=== PATIENT | female | born 1955 | race Caucasian/White ===

== ENCOUNTER 2021-01-08 20:15 | Emergency (ER) | payer MEDICARE ==
[~2021-01-08] VITALS: Ht 170.2 cm; Wt 81.8 kg
[2021-01-08 20:36] VITALS: TEMP 98.4
[2021-01-08 21:37] LABS: BASO % 0.3 % (0.0-2.0); EOS # 0.2 (0.0-0.7); EOS % 2.1 % (0-4.0); GRAN # 4.8 (1.4-6.5); GRAN % 66.6 % (42.2-75.2); HEMATOCRIT 39.7 % (37.0-47.0); HEMOGLOBIN 13.5 g/dl (12.5-16.0); LYMPH # 1.7 (1.2-3.4); LYMPH % 23.9 % (20.0-51.0); MEAN CELL VOLUME 101 fl (80.0-100.0); MEAN CORPUSCULAR HEMOGLOBIN 34 pg (27.0-31.0); MEAN CORPUSCULAR HGB CONC 34 g/dl (33.0-37.0); MEAN PLATELET VOLUME 10.8 fl (7.4-10.4); MONO # 0.5 (0.1-0.6); MONO % 6.8 % (1.7-9.3); PLATELET COUNT 197 K/mm3 (130-400); RED BLOOD COUNT 3.95 M/mm3 (4.10-5.30)
[2021-01-08 21:47] LABS: BILIRUBIN,TOTAL 0.4 mg/dL (0.0-1.0); CALCIUM 10.1 mg/dL (8.4-10.2); CREATININE, serum 0.92 (0.52-1.25); POTASSIUM 3.2 mmol/L (3.4-5.0); TOTAL PROTEIN 7.2 gm/dL (6.4-8.2)
[2021-01-08 23:20] VITALS: BP 146/91; PULSE 83
== END 2021-01-08 23:20 | disposition home or self-care (01) ==
LOC: COL.ER 20:15
PROVIDERS: Emergency Medicine
DX: S80.211A Abrasion, right knee, initial encounter (principal); M54.5 Low back pain; R22.43 Localized swelling, mass and lump, lower limb, bilateral; Z85.42 Personal history of malignant neoplasm of other parts of uterus; W19.XXXA Unspecified fall, initial encounter; Y92.512 Supermarket, store or market as the place of occurrence of the external cause
CPT/HCPCS: J1100; J1650; J1885; J2270; J3360

== ENCOUNTER 2021-01-19 17:12 | Emergency (ER) | payer MEDICARE ==
[~2021-01-19] VITALS: Ht 170.2 cm; Wt 81.8 kg
[2021-01-19 17:18] VITALS: TEMP 97
[2021-01-19 18:49] LABS: BASO % 0.4 % (0.0-2.0); EOS # 0.2 (0.0-0.7); EOS % 2.1 % (0-4.0); GRAN # 4.8 (1.4-6.5); GRAN % 68.4 % (42.2-75.2); HEMATOCRIT 41.4 % (37.0-47.0); HEMOGLOBIN 14.3 g/dl (12.5-16.0); LYMPH # 1.5 (1.2-3.4); LYMPH % 21.5 % (20.0-51.0); MEAN CELL VOLUME 98 fl (80.0-100.0); MEAN CORPUSCULAR HEMOGLOBIN 34 pg (27.0-31.0); MEAN CORPUSCULAR HGB CONC 35 g/dl (33.0-37.0); MEAN PLATELET VOLUME 11.6 fl (7.4-10.4); MONO # 0.5 (0.1-0.6); MONO % 7.2 % (1.7-9.3); PLATELET COUNT 181 K/mm3 (130-400); RED BLOOD COUNT 4.21 M/mm3 (4.10-5.30); REDCELL DISTRIBUTION WIDTH-CV 12.4 % (11.5-14.5)
[2021-01-19 19:18] LABS: ALANINE AMINOTRANSFERASE 47 U/L (4-34); ALKALINE PHOSPHATASE 94 U/L (50-136); ANION GAP 6 mmol/L (7-16); AST,SGOT 39 U/L (15-37); BILIRUBIN,TOTAL 0.4 mg/dL (0.0-1.0); BLOOD UREA NITROGEN 19 mg/dL (7-17); CALCIUM 9.4 mg/dL (8.4-10.2); CARBON DIOXIDE 31 mmol/L (22-30); CHLORIDE 103 mmol/L (98-107); CREATININE, serum 0.92 (0.52-1.25); GLUCOSE 105 mg/dL (74-106); POTASSIUM 4.6 mmol/L (3.4-5.0); SODIUM 140 mmol/L (137-145); TOTAL PROTEIN 7.1 gm/dL (6.4-8.2)
[2021-01-19 19:31] LABS: TROPONIN-I < 0.012 ng/mL (0.000-0.035)
[2021-01-19] MEDS ORDERED: LASIX 20MG TABL20 MG PO (19:43)
[2021-01-19 20:10] VITALS: BP 126/79; PULSE 87
== END 2021-01-19 20:15 | disposition home or self-care (01) ==
LOC: COL.ER 17:12
PROVIDERS: Emergency Medicine
DX: R60.0 Localized edema (principal); M54.5 Low back pain
CPT/HCPCS: J1885; J2405; J3010

== ENCOUNTER 2021-02-04 18:10 | Inpatient (IN) | payer MEDICARE, MEDICAID ==
[~2021-02-04] VITALS: Ht 170.2 cm; Wt 81.8 kg
[~2021-02-04 18:10] MED LIST: LASIX 20MG TABL20 MG PO
[2021-02-04] MEDS ORDERED: IBU800 M1 PO (18:32)
[2021-02-04 18:58] LABS: BASO % 0.4 % (0.0-2.0); EOS # 0.3 (0.0-0.7); EOS % 3.4 % (0-4.0); GRAN # 5.2 (1.4-6.5); GRAN % 65.7 % (42.2-75.2); HEMATOCRIT 39.6 % (37.0-47.0); HEMOGLOBIN 13.7 g/dl (12.5-16.0); LYMPH # 1.9 (1.2-3.4); LYMPH % 23.7 % (20.0-51.0); MEAN CELL VOLUME 98 fl (80.0-100.0); MEAN CORPUSCULAR HEMOGLOBIN 34 pg (27.0-31.0); MEAN CORPUSCULAR HGB CONC 35 g/dl (33.0-37.0); MEAN PLATELET VOLUME 11.5 fl (7.4-10.4); MONO # 0.5 (0.1-0.6); MONO % 6.4 % (1.7-9.3); PLATELET COUNT 203 K/mm3 (130-400); RED BLOOD COUNT 4.05 M/mm3 (4.10-5.30); REDCELL DISTRIBUTION WIDTH-CV 11.9 % (11.5-14.5)
[2021-02-04 19:06] LABS: ALANINE AMINOTRANSFERASE 22 U/L (4-34); ALBUMIN 3.9 gm/dL (3.5-5.0); ALKALINE PHOSPHATASE 88 U/L (50-136); ANION GAP 11 mmol/L (7-16); AST,SGOT 30 U/L (15-37); BILIRUBIN,TOTAL 0.2 mg/dL (0.0-1.0); BLOOD UREA NITROGEN 36 mg/dL (7-17); CALCIUM 11.1 mg/dL (8.4-10.2); CARBON DIOXIDE 24 mmol/L (22-30); CHLORIDE 107 mmol/L (98-107); CREATININE, serum 2.05 (0.52-1.25); GLUCOSE 89 mg/dL (74-106); POTASSIUM 3.3 mmol/L (3.4-5.0); SODIUM 142 mmol/L (137-145); TOTAL PROTEIN 7.7 gm/dL (6.4-8.2)
[2021-02-04 19:19] LABS: TROPONIN-I < 0.012 ng/mL (0.000-0.035)
[2021-02-04 20:35] LABS: MUCOUS Present /lpf; PH 5 (5-8); URINE APPEARANCE Cloudy; URINE BACTERIA Rare /hpf; URINE BILIRUBIN Negative (NEGATIVE); URINE BLOOD Negative (NEGATIVE); URINE COLOR Yellow; URINE GLUCOSE Negative (NEGATIVE); URINE KETONE Negative (NEGATIVE); URINE LEUKOCYTE ESTERASE 1+ (NEGATIVE); URINE NITRATE Negative (NEGATIVE); URINE PROTEIN(semi-quant) 2+ (NEGATIVE); URINE RBC 0-2 /hpf; URINE UROBILINOGEN Negative (NEGATIVE)
[2021-02-04 21:50] VITALS: BP 134/77; PULSE 93
[2021-02-04 23:28] VITALS: BP 136/66; PULSE 99; TEMP 97.8
--- NOTE | 2021-02-04 23:56 | NUR ---
PATIENT TO FLOOR AT 2130, PATIENT HAVING MUCH PAIN RATING IT AT 9/10, OBJECTIVE SIGNS INCLUDE FACIAL GRIMACING; RESTLESSNESS; ORAL MOANING WITH MOVEMENT. PATIENT TITOEN DILAUDID WITH SOME RELEIF NOTED. PATIENT STATES SHE HAS HAD INCREASED DIFFICULTY WITH AMBULATION D/T INCREASING EDEMA IN BLE NOW EXTENDING TO MID THIGH. SHE ALSO STATES SHE HAS SOME NUMBNESS AND TINGELING IN HER FEET THAT RADIATES UP LEGS WITH WALKING OR MOVEMENT. PATIENT STATES SHE HAS HAD 9 FALLS THIS MONTH. SHE IS PLESANT AND COOPERATIVE AND AWARE OF POSSIBLE MASS ON SPINE. SHE HAS NO CONCERNS OR WANTS AT THIS TIME.
[2021-02-05] VITALS (8 sets, daily range): BP systolic 92–136; BP diastolic 50–77; PULSE 78–109; TEMP 97.8–98.4
[2021-02-05 02:13] LABS: COLLECTION METHOD CLEAN CATCH
[2021-02-05 02:23] LABS: PH 5 (5-8); SQUAMOUS EPITHELIAL 0-2 /hpf; URINE APPEARANCE Hazy; URINE BACTERIA None Seen /hpf; URINE BILIRUBIN Negative (NEGATIVE); URINE BLOOD Negative (NEGATIVE); URINE COLOR Yellow; URINE GLUCOSE Negative (NEGATIVE); URINE KETONE Trace (NEGATIVE); URINE LEUKOCYTE ESTERASE Negative (NEGATIVE); URINE NITRATE Negative (NEGATIVE); URINE PROTEIN(semi-quant) 1+ (NEGATIVE); URINE RBC 0-2 /hpf; URINE UROBILINOGEN Negative (NEGATIVE)
[2021-02-05 02:37] LABS: BASO % 0.2 % (0.0-2.0); EOS # 0.2 (0.0-0.7); EOS % 2.5 % (0-4.0); GRAN # 5.5 (1.4-6.5); GRAN % 69.1 % (42.2-75.2); HEMOGLOBIN 12.1 g/dl (12.5-16.0); LYMPH # 1.8 (1.2-3.4); LYMPH % 21.9 % (20.0-51.0); MEAN CELL VOLUME 95 fl (80.0-100.0); MEAN CORPUSCULAR HEMOGLOBIN 34 pg (27.0-31.0); MEAN CORPUSCULAR HGB CONC 36 g/dl (33.0-37.0); MEAN PLATELET VOLUME 11.2 fl (7.4-10.4); MONO # 0.5 (0.1-0.6); MONO % 6.1 % (1.7-9.3); PLATELET COUNT 186 K/mm3 (130-400); RED BLOOD COUNT 3.58 M/mm3 (4.10-5.30); REDCELL DISTRIBUTION WIDTH-CV 11.8 % (11.5-14.5)
[2021-02-05 02:40] LABS: HEMATOCRIT 34.1 % (37.0-47.0)
[2021-02-05 02:44] LABS: CALCIUM 9.6 mg/dL (8.4-10.2); CREATININE, serum 1.36 (0.52-1.25); POTASSIUM 3.3 mmol/L (3.4-5.0)
--- NOTE | 2021-02-05 05:55 | NUR ---
Patient had difficulty resting last night d/t pain with movement. Patient can stand and pivot to C. Patient is increased fall risk d/t numbness of BLE poor physical response with movement independant of touch. States she cannot tell if she is urinating unless she "hears" it. Pain currently controlled with oral [place] and IV dilaudid.
--- NOTE | 2021-02-05 07:57 | NUR ---
Shift assessment completed. INT to R hand intact. Dressing to R knee CDI. CMS to LE within normal limits. Generalized weakness to LE. BP 104/50, nurse notified. Pt complains of pain at the small of back w/ movement. States pain is 8/10 and sharp, nurse notified. Pt in bed drowsy but oriented.
--- NOTE | 2021-02-05 08:33 | NUR ---
Assessment completed, alert/oriented, vital signs stable, continues to report severe pain in mid-lower back, PRN dilaudid given and will alteranated with PO [place] as well, patient reports numbness/tingling to BLE from about the knees down, she can feel pressure but cannont distinguish dull/ sharp , she was unable to move toes on either side when instructed to do so, she is scheduled for an MRI of L-spine today to better assess T12-L1 lesion that was visualized on previous MRI, heart RRR/ distal pulses are palpable, she has 2-3+ edema to BLE, ECHO was done this morning, no resp.difficulty and Lungs CTA, BS active and patient taking PO without issues, I have ordered her breakfast, I helped her get repositioned at this time, patient denies other needs
--- NOTE | 2021-02-05 09:10 | NUR ---
Patient has weakness and edema on both lower extremities. Pt describes minimal sensation when palpated, says she feels "pins and needles."
--- NOTE | 2021-02-05 09:19 | NUR ---
VS rechecked. BP 92/54, pulse 109, pain 10/10 in mid lower back, sharp "shock wave" and constant. Nurse notified.
--- NOTE | 2021-02-05 10:15 | NUR ---
Initial visit; Patient in a great deal of pain. Seasonal Driver attempted to help with a cold wash cloth on forehead and offering prayer. Lena had maximized her pain medication and was doing her best to wait it out. Seasonal Driver spoke with Nurse who was helpful and empathetic.
[2021-02-05 11:25] LABS: COLLECTION METHOD CLEAN CATCH
--- NOTE | 2021-02-05 14:43 | NUR ---
Forming Mill Operator met with patient to discuss discharge planning. Patient lives alone in [place] and sees Dr. Shaw for primary care. Patient obtains medications from [facility] on [address] with no difficulties. Patient uses a four wheeled walker and no other DME. Patient reports she is normally independent with ADLS but that sometimes getting dressed takes her some time. Patient does not have Advance Directives but wanted to complete DPOA-HC. Patient chose to designate her son, Tony (ph#[phone]) and no alternate. Patient verbalized understanding of DPOA-HC and signed the form. DIANA and GREG Mckinnon provided witness signature. DIANA provided original and copies to patient then placed copy on patient's chart. DIANA discussed home health services with patient who is interested in services. SW provided Medicare.gov list of agencies. Patient chose [facility]. DIANA contacted Denise at [facility] and faxed referral. DIANA then contacted patient's son, Tony to review discharge plan. Tony states he will be calling patient to check in with her this afternoon. Discharge plan: Home with Home Health.
--- NOTE | 2021-02-05 22:39 | NUR ---
PATIENT IN BED, PLEASANT. R FOREARM IV SITE INFILTRATED AND DC'D. 22G PLACED L FOREARM, 1 ATTEMPT. NO CONCERNS VOICED AT THIS TIME
[2021-02-06 04:37] VITALS: BP 104/56; PULSE 72; TEMP 98.1
--- NOTE | 2021-02-06 06:21 | NUR ---
PATIENT HAD RESTFUL NIGHT, HOWEVER WHEN SHE WOULD WAKE, HER PAIN WOULD BE NOTED AT 10/10. TREATED TO LEVEL OF 5/10 WITH DILAUDID AND [place]. PATIENT IS ANXIOUS FOR RESULTS FROM MRI, STATES SHE FEELS THERE IS "SOMETHING GROWING" ON HER SPINE. PATIENT IS UPBEAT AND OPTIMISTIC ABOUT HER FUTURE HEALTH.
[2021-02-06 06:42] LABS: BASO % 0.1 % (0.0-2.0); EOS # 0.1 (0.0-0.7); EOS % 0.8 % (0-4.0); GRAN # 5.2 (1.4-6.5); GRAN % 68.2 % (42.2-75.2); HEMATOCRIT 33.1 % (37.0-47.0); HEMOGLOBIN 11.2 g/dl (12.5-16.0); LYMPH % 26.3 % (20.0-51.0); MEAN CORPUSCULAR HEMOGLOBIN 34 pg (27.0-31.0); MEAN CORPUSCULAR HGB CONC 34 g/dl (33.0-37.0); MEAN PLATELET VOLUME 11.2 fl (7.4-10.4); MONO # 0.3 (0.1-0.6); MONO % 4.3 % (1.7-9.3); PLATELET COUNT 181 K/mm3 (130-400); RED BLOOD COUNT 3.31 M/mm3 (4.10-5.30); REDCELL DISTRIBUTION WIDTH-CV 11.8 % (11.5-14.5)
[2021-02-06 06:43] LABS: MEAN CELL VOLUME 100 fl (80.0-100.0)
[2021-02-06 06:54] LABS: ALBUMIN 3.3 gm/dL (3.5-5.0); BILIRUBIN,TOTAL 0.2 mg/dL (0.0-1.0); CREATININE, serum 1.03 (0.52-1.25); POTASSIUM 3.6 mmol/L (3.4-5.0); TOTAL PROTEIN 6.3 gm/dL (6.4-8.2)
[2021-02-06 07:43] VITALS: BP 110/70; PULSE 77; TEMP 98.3
[2021-02-06 11:32] VITALS: BP 110/61; PULSE 82; TEMP 97.9
--- NOTE | 2021-02-06 12:01 | NUR ---
Patient is going down to CT a tthis time
--- NOTE | 2021-02-06 14:40 | NUR ---
Primary nurse was assisted with [phone] patient care by [employer] student Betty Osman and [employer] instructor Margie Scott MSN, RN.
[2021-02-06 15:57] VITALS: BP 118/58; PULSE 87; TEMP 98.4
--- NOTE | 2021-02-06 19:30 | NUR ---
Initial assessment done- states pain to lower back 06/17,, Dilaudid given as ordered at this time- also one time does of Decadron 10 MG IV also given now- pt states unable to wiggle toes, feel like pins and needeles, overall numb from mid thigh down- was able to get up to BSC with 2 assist- very unsteady,, IV fluids of NS at 100cc/hr, son at [facility]- Shonda GARZA informed then that she is being transferred to [facility] when bed avaiable. Pt agrees.
[2021-02-06] MEDS ORDERED: BLUE-EMU LIDOC1 EACH TP (20:24)
[2021-02-06] MEDS ORDERED: Dilaudid Inj IV (20:24)
[2021-02-06] MEDS ORDERED: TYLENOL 325MG325 MG PO (20:24)
[2021-02-06] MEDS ORDERED: NORCO 325 MG-51 TAB PO (20:24)
[2021-02-06] MEDS ORDERED: NEURONTIN100 MG/CAP PO (20:24)
[2021-02-06 21:13] VITALS: BP 120/68; PULSE 86; TEMP 97.8
--- NOTE | 2021-02-06 21:15 | NUR ---
EMS here to take to [facility]_ paperwork completed- discharge summary printed and put with the discarge packet-- VSS. Report called to [facility] -
== END 2021-02-06 21:20 | disposition short-term general hospital (02) | DRG 315 ==
LOC: COL.ER 18:10 → MEDICAL 20:44
PROVIDERS: Hospitalist; Nurse Practitioner; Student in an Organized Health Care Education/Training Program; ADMIT Internal Medicine
DX: D18.09 Hemangioma of other sites (principal); N17.9 Acute kidney failure, unspecified; E86.0 Dehydration; E83.52 Hypercalcemia; R53.81 Other malaise; R29.6 Repeated falls; R60.0 Localized edema; E02 Subclinical iodine-deficiency hypothyroidism; E87.6 Hypokalemia; M19.90 Unspecified osteoarthritis, unspecified site; Z85.42 Personal history of malignant neoplasm of other parts of uterus; G89.29 Other chronic pain; T39.395A Adverse effect of other nonsteroidal anti-inflammatory drugs [NSAID], initial encounter; M48.05 Spinal stenosis, thoracolumbar region; M48.061 Spinal stenosis, lumbar region without neurogenic claudication; I08.1 Rheumatic disorders of both mitral and tricuspid valves; I45.10 Unspecified right bundle-branch block; S60.222A Contusion of left hand, initial encounter; S80.01XA Contusion of right knee, initial encounter; Z60.2 Problems related to living alone; Z80.9 Family history of malignant neoplasm, unspecified; W22.8XXA Striking against or struck by other objects, initial encounter; Y93.89 Activity, other specified; Y92.481 Parking lot as the place of occurrence of the external cause; Z87.891 Personal history of nicotine dependence
CPT/HCPCS: 99223-AI; 99233-AI; 99239; A9585; G0378; J1100; J1170; J1644; J3010; J7030; J7509; Q9967

== ENCOUNTER 2021-02-22 06:42 | Inpatient (IN) | payer MEDICARE, MEDICAID ==
[~2021-02-22] VITALS: Ht 170.2 cm; Wt 81.8 kg
[~2021-02-22 06:42] MED LIST changes: +BLUE-EMU LIDOC1 EACH TP; +Dilaudid Inj IV; +IBU800 M1 PO; +NEURONTIN100 MG/CAP PO; +NORCO 325 MG-51 TAB PO; +TYLENOL 325MG325 MG PO
[2021-02-22 07:30] LABS: BASO % 0.3 % (0.0-2.0); EOS % 0.1 % (0-4.0); GRAN # 8.3 (1.4-6.5); GRAN % 84.4 % (42.2-75.2); HEMOGLOBIN 10.9 g/dl (12.5-16.0); LYMPH # 0.9 (1.2-3.4); LYMPH % 8.9 % (20.0-51.0); MEAN CELL VOLUME 99 fl (80.0-100.0); MEAN CORPUSCULAR HEMOGLOBIN 33 pg (27.0-31.0); MEAN CORPUSCULAR HGB CONC 34 g/dl (33.0-37.0); MEAN PLATELET VOLUME 10.2 fl (7.4-10.4); MONO # 0.6 (0.1-0.6); MONO % 5.9 % (1.7-9.3); PLATELET COUNT 271 K/mm3 (130-400); RED BLOOD COUNT 3.28 M/mm3 (4.10-5.30)
[2021-02-22 07:47] LABS: BILIRUBIN,TOTAL 0.5 mg/dL (0.0-1.0); CALCIUM 8.2 mg/dL (8.4-10.2); CREATININE, serum 0.7 (0.52-1.25); POTASSIUM 3.2 mmol/L (3.4-5.0); TOTAL PROTEIN 6.2 gm/dL (6.4-8.2)
[2021-02-22 07:53] LABS: HEMATOCRIT 32.4 % (37.0-47.0)
[2021-02-22 08:03] LABS: C-REACTIVE PROTEIN 19.8 mg/dL (0.0-0.9)
[2021-02-22 08:47] LABS: ERYTHROCYTE SEDIMENTATION RATE 43 mm/hr (0-30)
--- NOTE | 2021-02-22 12:47 | NUR ---
SW working on placemen to [facility] [place] or [facility]. SW made aware of client transfer to ED from home. SW called [facility] to discuss options for patient to return to skilled placement. CLient has [employer] and is required to have a prior Authorization. SW Called [facility] to start PA. [facility] Auth number [id number] Basketball Referee reports that a new clinical assessment is needed. They need new PT orders and evaluation to admit client. If this can be done from the ED and faxed, they may consider client to transfer from ED to [facility]. However if this assessment can not be completed then the client will need to be admitted and have a new full clinical evaluation. THis is due to the discharge from [facility] on . SW will update if an order for PT can be processed and obtained.
[2021-02-22 16:11] VITALS: BP 138/70; PULSE 84; TEMP 99.4
[2021-02-22] MEDS ORDERED: SENOKOT S 50 MG1 TAB PO (16:14)
[2021-02-22] MEDS ORDERED: OXY IR5 MG PO (16:14)
[2021-02-22] MEDS ORDERED: NEURONTIN300 MG/CAP PO (16:14)
--- NOTE | 2021-02-22 16:14 | NUR ---
DIANA update. DIANA met with patient and with permission Dtr Torie HENRIQUEZ and son in the room. DIANA reviewed with the client and family about care and set expectations. DIANA talked with Sahara at [facility] about the patient's DC. Sahara (DIANA) reports that the patient has 3 options to come back. 1. On Skilled orders, not fighting cancer. 2. LTC fight cancer, but LTC. 3. Hospice. Educated family of these options and why insurance is pending clinical review for care. DIANA faxed all documentation for the temporary review. Will need to provide remainder of PPW once it is reviewed. Educated nursing staff on patient's stay. Needs PT/OT eval. Patient reports that her PCP is Dr. Kathleen Kahn, uses [facility] for medications, Walker for mobility but is having hard time walking. No other DME supports. WF.
[2021-02-22] MEDS ORDERED: ZANAFLEX 4MG TAB4 MG PO (16:15)
--- NOTE | 2021-02-22 16:46 | NUR ---
Patient alert and oriented, answers questions appropriately. See assessment. Lumbar spine with surgical incision, edges well approximated, no redness. Dressing with scant amount of drainage noted. C/o numbness to BLE, pulses palpable. States unable to bear weight or walk. States discharged from AL at [facility] yesterday and slept on the floor at her apartment last night, and upon waking was unable to get off floor. Also states she left [facility] with no medications so has not taken any of her prescription pain medications, which allows her to ambulate. No other c/o at this time.
[2021-02-22 19:59] VITALS: BP 123/91; PULSE 87; TEMP 100.1
--- NOTE | 2021-02-22 22:00 | NUR ---
PT IN BED, AWAKENS TO NAME. IS ALERT AND ORIENTED X4. HAS IVF TO RT HAND INFUSING WITHOUT PROBLEM. HAS TEMP 100.1, GIVEN ES TYLENOL 2 TABS AT THIS TIME WELL HS MEDS. HAS NOT BEEN OUT OF BED SINCE ARRIVING TO ROOM. ATE 75% OF DINNER.
[2021-02-22 23:51] VITALS: BP 95/47; PULSE 78; TEMP 99.9
--- NOTE | 2021-02-23 03:14 | NUR ---
PT SLEEPING. IVF CONTINUE WITHOUT PROBLEM.
[2021-02-23 04:18] VITALS: BP 105/50; PULSE 64; TEMP 98
[2021-02-23 07:40] LABS: BASO % 0.4 % (0.0-2.0); EOS # 0.1 (0.0-0.7); GRAN # 6.2 (1.4-6.5); GRAN % 77.4 % (42.2-75.2); HEMOGLOBIN 10.6 g/dl (12.5-16.0); LYMPH % 12.6 % (20.0-51.0); MEAN CELL VOLUME 102 fl (80.0-100.0); MEAN CORPUSCULAR HEMOGLOBIN 33 pg (27.0-31.0); MEAN CORPUSCULAR HGB CONC 33 g/dl (33.0-37.0); MEAN PLATELET VOLUME 10.2 fl (7.4-10.4); MONO # 0.7 (0.1-0.6); MONO % 8.2 % (1.7-9.3); PLATELET COUNT 252 K/mm3 (130-400); RED BLOOD COUNT 3.19 M/mm3 (4.10-5.30); REDCELL DISTRIBUTION WIDTH-CV 13.3 % (11.5-14.5)
[2021-02-23 07:45] LABS: HEMATOCRIT 32.6 % (37.0-47.0)
[2021-02-23 07:46] VITALS: BP 113/58; PULSE 79; TEMP 98.7
[2021-02-23 07:58] LABS: ALBUMIN 2.8 gm/dL (3.5-5.0); BILIRUBIN,TOTAL 0.7 mg/dL (0.0-1.0); CALCIUM 8.3 mg/dL (8.4-10.2); CREATININE, serum 0.74 (0.52-1.25); POTASSIUM 3.1 mmol/L (3.4-5.0); TOTAL PROTEIN 5.9 gm/dL (6.4-8.2)
--- NOTE | 2021-02-23 09:00 | NUR ---
Pt resting in bed having pain complaints in her legs and lower back. Pain medication given as well as scheduled morning medications. She is alert and oriented although expectations are not a reality. She is upset that [facility] had not been treating her cancer. She stated that she wanted to be somewhere that treats the cancer. Informed her that at this point she is not getting any treatment that requires her to be in a facility like that. I informed her that her oncologist would be the one to help her make that decision. She stated that she has that appointment the beginning of March. I stated that they would help her decide the next plan for her. As of right now [facility] is there to help her stay strong and for her to have therapy work with her. Pt daughter arrived about this time and stated that she agreed. And that right now her mom does not have anyone to help her as much as what she needs.
[2021-02-23 12:50] VITALS: BP 103/63; PULSE 75; TEMP 99.3
--- NOTE | 2021-02-23 13:42 | NUR ---
Pt has been up to the restroom. She continues to rate pain 8/10 in her lower back and legs. Does not appear to be in severe pain, pain medication given. No other needs, will continue to monitor
[2021-02-23 17:11] VITALS: BP 115/61; PULSE 80; TEMP 97.5
--- NOTE | 2021-02-23 18:23 | NUR ---
IV in right hand infiltrated. IV removed. Called Betty VALLADARES and order to leave out. Pt reports feeling better and states that she now knows why she feels "sore". Stated that her son did a lot with her during activity. Pt denies any needs
[2021-02-23 20:18] VITALS: BP 110/55; PULSE 87; TEMP 100.7
--- NOTE | 2021-02-23 20:52 | NUR ---
PT IN BED. HAS FEVER 100.7. MEDICATED WITH HS MEDS INCLUDING OXYCODONE 5MG PO AND ES TYLENOL 1000MG PO NOW WELL HS MEDS. ASSISTED TO BATHROOM, VOIDS DARK YELLOW URINE AND BACK TO BED. PT WALKS WITH WALKER, SLOW STEADY GAIT. HAS DRSG TO BACK, D/I. REDNESS AT MID BACK NOTED. HAS NO IV SITE.
[2021-02-23 23:58] VITALS: BP 92/51; PULSE 58; TEMP 98.3
[2021-02-24] VITALS (13 sets, daily range): BP systolic 73–132; BP diastolic 43–74; PULSE 64–92; TEMP 97.9–99.1
--- NOTE | 2021-02-24 | NUR ---
AFEBRILE. OFFERS NO COMPLAINTS AT THIS TIME.
[2021-02-24 07:41] LABS: HEMATOCRIT 33.2 % (37.0-47.0); HEMOGLOBIN 10.6 g/dl (12.5-16.0); MEAN CELL VOLUME 103 fl (80.0-100.0); MEAN CORPUSCULAR HEMOGLOBIN 33 pg (27.0-31.0); MEAN CORPUSCULAR HGB CONC 32 g/dl (33.0-37.0); MEAN PLATELET VOLUME 10.8 fl (7.4-10.4); PLATELET COUNT 243 K/mm3 (130-400); RED BLOOD COUNT 3.24 M/mm3 (4.10-5.30); REDCELL DISTRIBUTION WIDTH-CV 13.1 % (11.5-14.5)
[2021-02-24 08:02] LABS: ALBUMIN 2.9 gm/dL (3.5-5.0); BILIRUBIN,TOTAL 0.5 mg/dL (0.0-1.0); CALCIUM 8.2 mg/dL (8.4-10.2); CREATININE, serum 0.72 (0.52-1.25); POTASSIUM 3.6 mmol/L (3.4-5.0); TOTAL PROTEIN 6.1 gm/dL (6.4-8.2)
--- NOTE | 2021-02-24 08:50 | NUR ---
Patient resting in bed. Dopplar completed, by Janeth in Vascular. I notifed results to Nadia VALLADARES. Patient lying in bed, tearful. Reports feeling overwhelmed. Pain rating 8/10. Prn Oxicodone per request. She tolerated breakfast. Denies nausea. I instructed her on UA collection. Will monitor.
--- NOTE | 2021-02-24 11:00 | NUR ---
Patient showered. KAY Sullivan assisted. She gave fresh linens. Prior to shower, Air strip to spine removed. Purulent drainage noted. Irina Thomas made aware, she will speak to .
[2021-02-24 11:36] LABS: COLLECTION METHOD CLEAN CATCH
[2021-02-24 11:46] LABS: MUCOUS Present /lpf; PH 7 (5-8); SQUAMOUS EPITHELIAL 0-2 /hpf; URINE APPEARANCE Clear; URINE BACTERIA None Seen /hpf; URINE BILIRUBIN Negative (NEGATIVE); URINE BLOOD Negative (NEGATIVE); URINE COLOR Yellow; URINE GLUCOSE Negative (NEGATIVE); URINE KETONE Negative (NEGATIVE); URINE LEUKOCYTE ESTERASE Negative (NEGATIVE); URINE NITRATE Negative (NEGATIVE); URINE PROTEIN(semi-quant) Negative (NEGATIVE); URINE RBC 0-2 /hpf
--- NOTE | 2021-02-24 11:50 | NUR ---
Patient hypotensive, Irina Sutton made aware.
--- NOTE | 2021-02-24 12:30 | NUR ---
Fluid bolus ordered & started. Patient a hard IV stick,4 different nurses attempted, with 2 attempts each. Beulah to start picc line. Hospitalsit team rounding.
--- NOTE | 2021-02-24 12:46 | NUR ---
Vancomycin Initial Dosing Pharmacy Note Ordering provider: MD ЕЛЕНА Indication/duration: EMPIRIC Relevant comorbidities: SPINAL CORD MALIGNANCY LABS: SCR 0.72, CRCL ~75, WBC 4.7 Recommendation: VANCOMYCIN 15 MG/KG Loading dose: 1.5 grams Maintenance dose: 1.25 grams every 12 hours Trough goal: 15-20 ug/mL
--- NOTE | 2021-02-24 13:03 | NUR ---
First visit from the visual manager. No needs right now.
--- NOTE | 2021-02-24 14:15 | NUR ---
Blood pressure improved, did give scheduled muscle relaxant. Patient to CT scan.
--- NOTE | 2021-02-24 14:58 | NUR ---
Director Of Recruitment And Admissions faxed clinical information and authorization request to [facility] for review. DIANA received a message from Shyanne at [facility] who advised authorization has been approved starting today, 02/24/21 for three days (auth #[id number]). Patient will need to be re-reviewed on 02/26/21. DIANA spoke with BLAINE Arevalo who advised patient is not ready for discharge today. DIANA contacted Rober at [facility] and faxed updates. Rober advised they can accept once patient is medically cleared for discharge. Discharge Plan: [facility]
--- NOTE | 2021-02-24 15:25 | NUR ---
Spoke to Irina Sutton. Patient blood pressure decreased after muscles relaxant, now no longer scheduled due to blood pressue. Ivf & antibioitcs continue.
--- NOTE | 2021-02-24 17:27 | NUR ---
Patient trying to rest. She is feeling worn out.
--- NOTE | 2021-02-24 17:46 | NUR ---
Betty Thomas made aware of CT scan results. No new orders at this time
--- NOTE | 2021-02-24 18:47 | NUR ---
Patient one assist to the bathroom with walker. Voided. Dinner ordered. Ivf per orders & IV antibioitcs. Blood pressue remains stable. Bedside report to Irina GARZA.
--- NOTE | 2021-02-24 20:02 | NUR ---
Pt having a lot of complaints of pain in her lower back and then groin, pain medication given . Drsg to her back was changed a shift change, it is currently CDI.
[2021-02-25] VITALS (9 sets, daily range): BP systolic 97–128; BP diastolic 50–68; PULSE 68–80; TEMP 98–98.7
[2021-02-25 07:26] LABS: BASO % 0.6 % (0.0-2.0); EOS # 0.3 (0.0-0.7); EOS % 7.8 % (0-4.0); GRAN # 1.8 (1.4-6.5); GRAN % 51.4 % (42.2-75.2); LYMPH % 29.5 % (20.0-51.0); MEAN CELL VOLUME 103 fl (80.0-100.0); MEAN CORPUSCULAR HGB CONC 32 g/dl (33.0-37.0); MEAN PLATELET VOLUME 10.9 fl (7.4-10.4); MONO # 0.4 (0.1-0.6); MONO % 10.4 % (1.7-9.3); PLATELET COUNT 219 K/mm3 (130-400); RED BLOOD COUNT 2.69 M/mm3 (4.10-5.30); REDCELL DISTRIBUTION WIDTH-CV 13.2 % (11.5-14.5)
[2021-02-25 07:27] LABS: CALCIUM 7.7 mg/dL (8.4-10.2); CREATININE, serum 0.76 (0.52-1.25); POTASSIUM 3.2 mmol/L (3.4-5.0)
[2021-02-25 07:35] LABS: HEMATOCRIT 27.7 % (37.0-47.0); HEMOGLOBIN 8.9 g/dl (12.5-16.0); MEAN CORPUSCULAR HEMOGLOBIN 33 pg (27.0-31.0)
--- NOTE | 2021-02-25 09:22 | NUR ---
MORNING SHIFT ASSESSMENT COMPLETED AT THIS TIME. AM MEDICATIONS ADMINISTERED. PATIENT GIVEN PRN PO PAIN PILL FOR PAIN IN HER BACK THAT RADIATES DOWN TO THE GROIN AND LEGS. VSS. TELE IN PLACE. MODERATE DRAINAGE PRESENT ON MIDLINE BACK AIRSTRIP. DRESSING REMOVED. EDGES WELL APPROXIMATED, ERYTHEMA AROUND INCISION SITE NOTED. NEW AIRSTRIP DRESSING PLACED OVER BACK INCISION SITE. PICC LINE TO [facility]. CALL LIGHT WITHIN REACH.
--- NOTE | 2021-02-25 09:32 | NUR ---
THIS NURSE PRESENT IN ROOM, PATIENT REPORTS THAT SHE FEELS NAUSEATED. PATIENT DRY HEAVING. PATIENT GIVEN EMESIS BASIN AND DOSE OF IV ZOFRAN. NO EPISODE OF EMESIS. WILL CONTINUE TO MONITOR.
--- NOTE | 2021-02-25 10:55 | NUR ---
IV FLUID RATE DECREASED FROM 150ML/HR TO 75ML/HR PER ORDERS.
--- NOTE | 2021-02-25 12:50 | NUR ---
Broth Mixer attended clinical rounds with the team. Patient will be ready for discharge to [facility] in the next 24-48 hours.
--- NOTE | 2021-02-25 13:33 | NUR ---
PATIENT CONSENT FORM SIGNED AND PLACED ON CHART FOR ABSCESS DRAINAGE. PATIENT DISCONNECTED FROM IV PUMP. PATIENT TAKEN TO CT VIA WHEELCHAIR. WILL WAIT FOR PATIENT ARRIVAL BACK TO ROOM 347.
--- NOTE | 2021-02-25 14:05 | NUR ---
1330 - Patient to CT via W/C for abscess drain to back. 1340 - Patient in prone position. Airstrip dressing removed from back. Skin tears noted bilaterally. 1350 - Time out performed. 1405 - Procedure completed. Specimen to lab. 1415 - Patient returned to room via W/C. Report to GREG Palacios.
--- NOTE | 2021-02-25 14:22 | NUR ---
PATIENT ARRIVED TO ROOM [address] BLAINE JOHNSON CALLED AND NOTIFIED THAT THERE ARE NO LAB ORDERS FOR THE ASPIRATED FLUID. HOSPITALIST TO REVIEW AND PLACE ORDERS.
--- NOTE | 2021-02-25 20:52 | NUR ---
PATIENT IS CALM IN BED.DUE MEDS GIVEN,ASSESSMENT DONE.RATES PAIN AT 5.DECLINES PAIN MEDICATION.NO OTHER NEEDS AT THIS TIME.
[2021-02-26 00:19] VITALS: BP 116/68; PULSE 78; TEMP 98.5
[2021-02-26 04:45] VITALS: BP 141/69; PULSE 63; TEMP 98.1
--- NOTE | 2021-02-26 05:25 | NUR ---
PATIENT HAD A RESTFUL NIGHT,HAS MINIMAL DRAINAGE ON THE DRESSING.NO OTHER NEEDS AT THIS TIME.
[2021-02-26 07:30] VITALS: BP 121/61; PULSE 67; TEMP 98.5
[2021-02-26 07:40] LABS: BASO % 0.9 % (0.0-2.0); EOS # 0.4 (0.0-0.7); GRAN # 1.4 (1.4-6.5); GRAN % 43.7 % (42.2-75.2); LYMPH # 1.1 (1.2-3.4); MEAN CELL VOLUME 104 fl (80.0-100.0); MEAN CORPUSCULAR HGB CONC 32 g/dl (33.0-37.0); MEAN PLATELET VOLUME 10.9 fl (7.4-10.4); MONO # 0.3 (0.1-0.6); MONO % 9.1 % (1.7-9.3); PLATELET COUNT 213 K/mm3 (130-400); RED BLOOD COUNT 2.69 M/mm3 (4.10-5.30); REDCELL DISTRIBUTION WIDTH-CV 13.2 % (11.5-14.5)
[2021-02-26 07:41] LABS: HEMATOCRIT 27.9 % (37.0-47.0); HEMOGLOBIN 8.8 g/dl (12.5-16.0); MEAN CORPUSCULAR HEMOGLOBIN 33 pg (27.0-31.0)
[2021-02-26 07:54] LABS: CALCIUM 8.1 mg/dL (8.4-10.2); CREATININE, serum 0.69 (0.52-1.25); POTASSIUM 3.6 mmol/L (3.4-5.0)
--- NOTE | 2021-02-26 11:30 | NUR ---
Changed patients dressing to her back. She has the one incision closed with sutures. The area surrounding the incision is red, warm to the touch and excoriated. The skin to her lower back is tight and shiny. There is clear red drainage coming from the incision. Placed two aquacel foam dressings to the incision to help catch the drainage and keep the incision dry. Patient stated she did not know she sutures in her incision. She has a few blisters alos surrounding the incision from what appears to open and drained blisters. No other changes at this time. Call light within reach.
[2021-02-26 11:57] VITALS: BP 114/66; PULSE 73; TEMP 98.7
[2021-02-26 15:44] VITALS: BP 135/69; PULSE 73; TEMP 98.7
--- NOTE | 2021-02-26 16:21 | NUR ---
Dry Cleaning Attendant attended clinical rounds with the team and patient will likely discharge tomorrow. SW faxed clinical updates to [facility]. SW also faxed clinical information to [facility] for review to obtain new authorization for SNF.
--- NOTE | 2021-02-26 18:30 | NUR ---
Patients dressing has remained clean and dry to her back. Her pain has been constant, pain medication helps a little. She denies nausea. She stated her pain is worse when she tries to lay down or walk too far. No otther changes at this time. Call light within reach.
--- NOTE | 2021-02-26 19:30 | NUR ---
Pt. sitting up in bed. Pt. is A&OX3, assessment complete. PICC to rt. upper arm patent. Dressing to mid back incision CDI at this time. Pt. reports pain to back at a 7 on pain scale, gave pain meds per orders. Pt. denies further needs, call light within reach.
[2021-02-26 20:15] VITALS: BP 132/72; PULSE 81; TEMP 98.5
[2021-02-27] VITALS: BP 108/58; PULSE 62; TEMP 98.6
[2021-02-27 03:38] VITALS: BP 125/62; PULSE 62; TEMP 97.3
--- NOTE | 2021-02-27 06:53 | NUR ---
Pt just getting back to bed from using the restroom. Having complaints that her back feels like it is burning. Red from tape from dressings to incision. Recently had PRN pain medication given, call light within reach.
[2021-02-27 07:29] LABS: BASO % 0.5 % (0.0-2.0); EOS # 0.4 (0.0-0.7); EOS % 9.6 % (0-4.0); GRAN # 1.9 (1.4-6.5); GRAN % 48.5 % (42.2-75.2); LYMPH # 1.3 (1.2-3.4); LYMPH % 33.4 % (20.0-51.0); MEAN CELL VOLUME 102 fl (80.0-100.0); MEAN CORPUSCULAR HGB CONC 31 g/dl (33.0-37.0); MEAN PLATELET VOLUME 10.7 fl (7.4-10.4); MONO # 0.3 (0.1-0.6); MONO % 7.5 % (1.7-9.3); PLATELET COUNT 199 K/mm3 (130-400); REDCELL DISTRIBUTION WIDTH-CV 12.9 % (11.5-14.5)
[2021-02-27 07:41] LABS: HEMATOCRIT 29.6 % (37.0-47.0); HEMOGLOBIN 9.3 g/dl (12.5-16.0); MEAN CORPUSCULAR HEMOGLOBIN 32 pg (27.0-31.0)
[2021-02-27 07:43] LABS: CALCIUM 8.4 mg/dL (8.4-10.2); CREATININE, serum 0.72 (0.52-1.25); POTASSIUM 3.6 mmol/L (3.4-5.0)
[2021-02-27 08:15] VITALS: BP 127/64; PULSE 71; TEMP 98.5
--- NOTE | 2021-02-27 09:00 | NUR ---
Assessment completed. Heart sounds regular, lungs clear, bowel sounds present. Pt does have bilateral lower extremity edema, uses walker to the restroom and is a standby assist. She reports overall feeling well. She is finishing breakfast, will continue to monitor. Rounding completed, new orders entered. Dr Bear called and notified of consult
[2021-02-27 12:37] VITALS: BP 109/53; PULSE 68; TEMP 98.3
--- NOTE | 2021-02-27 13:00 | NUR ---
Pt has been resting throughout the day. She is stand by assist to the restroom. Denies needs, call light within reach
--- NOTE | 2021-02-27 15:21 | NUR ---
[employer] Community Service Officer faxed clinical updates to Rober at [facility]. Patient's insurance authorization is still pending. Discharge Plan: [facility] once insurance authorization is approved.
[2021-02-27 15:51] VITALS: BP 114/54; PULSE 71; TEMP 98
--- NOTE | 2021-02-27 16:30 | NUR ---
Dressing to patient's back changed at this time. Bottom part of the incision does have active drainage. New dressing applied. Pain medication given. Pt reports that her back itches. Encouraged her to not itch it to cause damage to the incision. Pt denies other needs, she does have a visitor in the room at this time
--- NOTE | 2021-02-27 18:51 | NUR ---
BLAINE Samson has been in to see patient. from contacted her wanting pt transferred to . Pt aware and is aware of the plan. Report given
[2021-02-27 19:27] VITALS: BP 117/56; PULSE 87; TEMP 98.8
--- NOTE | 2021-02-27 19:48 | NUR ---
Plans to transfer pt. to [facility]. Dressing changed. Gave pain meds at this time. Pt. belongings gathered. Awaiting EMS.
--- NOTE | 2021-02-27 20:16 | NUR ---
Natasha has arrived for transfer. All paperwork sent, pt. report given to Bernabe, with [facility]. [facility]. Belongings gathered. Pt. escorted out with [facility].
--- NOTE | 2021-02-27 20:23 | NUR ---
Report called to GREG Bernardo at [facility].
== END 2021-02-27 20:27 | disposition short-term general hospital (02) | DRG 862 ==
LOC: COL.ER 06:42 → SURG 13:13
PROVIDERS: Emergency Medicine; Hospitalist; Physician Assistant; ADMIT Family Medicine
PROC: 02HV33Z Insertion of Infusion Device into Superior Vena Cava, Percutaneous Approach (ICD-10-PCS; principal; 2021-02-24)
PROC: 009U3ZZ Drainage of Spinal Canal, Percutaneous Approach (ICD-10-PCS; 2021-02-25)
DX: T81.41XA Infection following a procedure, superficial incisional surgical site, initial encounter (principal); A41.9 Sepsis, unspecified organism; M62.82 Rhabdomyolysis; I82.811 Embolism and thrombosis of superficial veins of right lower extremity; L76.34 Postprocedural seroma of skin and subcutaneous tissue following other procedure; G97.82 Other postprocedural complications and disorders of nervous system; T81.44XA Sepsis following a procedure, initial encounter; Z66 Do not resuscitate; D64.9 Anemia, unspecified; E87.6 Hypokalemia; E03.9 Hypothyroidism, unspecified; G96.198 Other disorders of meninges, not elsewhere classified; Z85.42 Personal history of malignant neoplasm of other parts of uterus; Z90.710 Acquired absence of both cervix and uterus; Z85.89 Personal history of malignant neoplasm of other organs and systems; Z87.891 Personal history of nicotine dependence; Z90.79 Acquired absence of other genital organ(s); Z90.722 Acquired absence of ovaries, bilateral; Y83.8 Other surgical procedures as the cause of abnormal reaction of the patient, or of later complication, without mention of misadventure at the time of the procedure
CPT/HCPCS: 99222-AI; 99232-AI; 99233-AI; C1751; J1170; J1650; J2405; J2543; J3010; J3370; J3480; J7040; J7050; J7120; Q9967